=== PATIENT | female | born 1995 | race Caucasian/White ===

== ENCOUNTER 2022-07-31 15:08 | Observation (INO) ==
[2022-07-31] MEDS ORDERED: NORCO 5/325 MG TAB PO PRN (17:58)
[2022-07-31] MEDS: DIFLUCAN 200 MG IV PREMIX* 200 MG/100 ML BAG IV SCH (18:05)
[2022-07-31] MEDS: NS 1,000 ML IV 1,000 ML IV SCH (18:05)
[2022-07-31 18:16] LABS: BASOPHILS # (AUTO) 0.1 X10^3/uL (0.0-0.1); BASOPHILS % (AUTO) 0.7 % (0.2-1.0); EOSINOPHILS % (AUTO) 0.3 % (0.9-2.9); HEMATOCRIT 37.3 % (36.0-47.0); HEMOGLOBIN 12.6 g/dL (12.0-16.0); LYMPHOCYTES # (AUTO) 3.2 X10^3/uL (1.3-2.9); LYMPHOCYTES % (AUTO) 38.8 % (21.0-51.0); MEAN CORPUSCULAR HEMOGLOBIN 26.5 pg (27.0-34.0); MEAN CORPUSCULAR HGB CONC 33.7 g/dL (33.0-35.0); MEAN CORPUSCULAR VOLUME 78.8 fL (80.0-100.0); MEAN PLATELET VOLUME 8.1 fL (7.4-11.0); MONOCYTES # (AUTO) 0.4 x10^3/uL (0.3-0.8); MONOCYTES % (AUTO) 5.2 % (0.0-13.0); NEUTROPHILS # (AUTO) 4.6 x10^3/uL (2.2-4.8); RED BLOOD COUNT 4.74 X10^6/uL (3.5-5.4); RED CELL DISTRIBUTION WIDTH 13.3 % (11.6-16.5); WHITE BLOOD COUNT 8.3 X10^3/uL (3.6-10.0)
[2022-07-31 18:25] LABS: ALANINE AMINOTRANSFERASE 14 Units/L (12-78); ALBUMIN 3.3 g/dL (3.4-5.0); ALKALINE PHOSPHATASE 57 Units/L (46-116); ASPARTATE AMINO TRANSFERASE 16 Units/L (15-37); BLOOD UREA NITROGEN 15 mg/dL (7-18); CALCIUM 8.5 mg/dL (8.5-10.1); CARBON DIOXIDE 27.2 mmol/L (21-32); CHLORIDE 104 mmol/L (98-107); COR CA(FOR HYPOALB) 9.1 mg/dL (8.5-10.1); CREATININE 0.61 mg/dL (0.55-1.02); SODIUM 141 mmol/L (136-145); TOTAL PROTEIN 7.4 g/dL (6.4-8.2); eGFR NON BLACK RACES > 60 (>60)
[2022-07-31] MEDS: ZOSYN VIAL 4.5 GRAMS 4.5 G in NS 100 ML IV 100 ML IV SCH (19:36)
[2022-07-31] MEDS: ZOFRAN INJ 4 MG VIAL IVP PRN ×2 (19:57→23:47)
[2022-07-31] MEDS: PERCOCET TAB 5/325 MG PO PRN (19:57)
[2022-08-01] MEDS: PERCOCET TAB 5/325 MG PO PRN ×4 (01:51→21:04)
[2022-08-01] MEDS: ZOSYN VIAL 4.5 GRAMS 4.5 G in NS 100 ML IV 100 ML IV SCH ×5 (05:37→21:05)
[2022-08-01 06:04] LABS: BASOPHILS % (AUTO) 0.4 % (0.2-1.0); EOSINOPHILS % (AUTO) 0.8 % (0.9-2.9); HEMATOCRIT 37.5 % (36.0-47.0); HEMOGLOBIN 12.4 g/dL (12.0-16.0); LYMPHOCYTES # (AUTO) 3.2 X10^3/uL (1.3-2.9); LYMPHOCYTES % (AUTO) 54.9 % (21.0-51.0); MEAN CORPUSCULAR HEMOGLOBIN 26.5 pg (27.0-34.0); MEAN CORPUSCULAR HGB CONC 33.2 g/dL (33.0-35.0); MEAN CORPUSCULAR VOLUME 79.8 fL (80.0-100.0); MEAN PLATELET VOLUME 8.6 fL (7.4-11.0); MONOCYTES # (AUTO) 0.4 x10^3/uL (0.3-0.8); MONOCYTES % (AUTO) 6.5 % (0.0-13.0); NEUTROPHILS # (AUTO) 2.2 x10^3/uL (2.2-4.8); NEUTROPHILS % (AUTO) 37.4 % (42.0-75.0); RED CELL DISTRIBUTION WIDTH 13.5 % (11.6-16.5); WHITE BLOOD COUNT 5.8 X10^3/uL (3.6-10.0)
[2022-08-01 06:16] LABS: ALANINE AMINOTRANSFERASE 15 Units/L (12-78); ALBUMIN 2.8 g/dL (3.4-5.0); ALKALINE PHOSPHATASE 48 Units/L (46-116); ASPARTATE AMINO TRANSFERASE 24 Units/L (15-37); BLOOD UREA NITROGEN 13 mg/dL (7-18); CALCIUM 8.4 mg/dL (8.5-10.1); CARBON DIOXIDE 27.6 mmol/L (21-32); CHLORIDE 106 mmol/L (98-107); COR CA(FOR HYPOALB) 9.4 mg/dL (8.5-10.1); SODIUM 142 mmol/L (136-145); TOTAL PROTEIN 6.7 g/dL (6.4-8.2); eGFR NON BLACK RACES > 60 (>60)
[2022-08-01] MEDS ORDERED: POTASSIUM CHLORIDE LIQ 20 MEQ UDC PO PRN (06:24)
[2022-08-01] MEDS ORDERED: MAGNESIUM SULFATE 1 GRAM/100 mL PREMIX 1 G/100 ML BAG IV PRN (06:24)
[2022-08-01] MEDS ORDERED: MICRO K EXTEN CAP 10 MEQ PO PRN (06:24)
[2022-08-01] MEDS ORDERED: POTASSIUM CHL 60 MEQ/NS 0.45% 500 ML IV PRN (06:24)
[2022-08-01] MEDS ORDERED: KLOR-CON PO PRN (06:24)
[2022-08-01] MEDS ORDERED: POTASSIUM CHL 40 MEQ/NS 0.45% 500 ML IV PRN (06:24)
[2022-08-01] MEDS ORDERED: K-RIDER 10 MEQ/NS 100 ML 10 MEQ/100 ML BAG IV PRN (06:24)
--- NOTE | 2022-08-01 08:17 | DR.PROGNOT ---
HOSPITAL PROGRESS NOTE Progress Note for Day of: Progress Note Date: 08/01/22 Chief Complaint Chief Complaint: c/o painful ulcerations and open areas between skin folds RT lower abdominal wall , LT groin RT side . Pt is diabetic and morbid obese . Past Medical Family Social History Past Med/Fam/Surg Hx: No changes since H&P Allergies: Allergies No Known Drug Allergies [NKDA] Allergy (Unknown, Unverified 12/20/21 09:17) Onset Date: 12/20/2021 Review Of Systems ROS: No change since H&P Vital Signs Vital Signs: Temperature 98.1 F Pulse Rate [Radial] 85 Respiratory Rate 18 Blood Pressure [Left Arm] 121/71 Blood Pressure [Right Arm] 140/89 Blood Pressure 115/67 O2 Sat by Pulse Oximetry 97 Physical Exam Skin: Other (multiple open wounds between skin folds lower abdominal wall , groins ranging between 2 cm to 8 cm with cellulitis . no abscess formation or necrosis .) Speech Pattern: Clear and Appropriate Laboratory and Diagnostics Result Diagrams: 08/01/22 05:27 08/01/22 05:27 Labs: 07/31/22 17:40 Abdomen Wound Gram Stain - Final Laboratory WBC 5.8 X10^3/uL (3.6-10.0) 08/01/22 05:27 RBC 4.70 X10^6/uL (3.5-5.4) 08/01/22 05:27 Hgb 12.4 g/dL (12.0-16.0) 08/01/22 05:27 Hct 37.5 % (36.0-47.0) 08/01/22 05:27 MCV 79.8 fL (80.0-100.0) L 08/01/22 05:27 MCH 26.5 pg (27.0-34.0) L 08/01/22 05:27 MCHC 33.2 g/dL (33.0-35.0) 08/01/22 05:27 RDW 13.5 % (11.6-16.5) 08/01/22 05:27 Plt Count 216 X10^3/uL (150.0-450.0) 08/01/22 05:27 MPV 8.6 fL (7.4-11.0) 08/01/22 05:27 Neut % (Auto) 37.4 % (42.0-75.0) L 08/01/22 05:27 Lymph % (Auto) 54.9 % (21.0-51.0) H 08/01/22 05:27 [place] % (Auto) 6.5 % (0.0-13.0) 08/01/22 05:27 Eos % (Auto) 0.8 % (0.9-2.9) L 08/01/22 05:27 Baso % (Auto) 0.4 % (0.2-1.0) 08/01/22 05:27 Neut # (Auto) 2.2 x10^3/uL (2.2-4.8) 08/01/22 05:27 Lymph # (Auto) 3.2 X10^3/uL (1.3-2.9) H 08/01/22 05:27 [place] # (Auto) 0.4 x10^3/uL (0.3-0.8) 08/01/22 05:27 Eos # (Auto) 0.0 x10^3/uL (0.0-0.2) 08/01/22 05:27 Baso # (Auto) 0.0 X10^3/uL (0.0-0.1) 08/01/22 05:27 Absolute Nucleated RBC 0.0 /100WBC 08/01/22 05:27 Sodium 142 mmol/L (136-145) 08/01/22 05:27 Corrected Sodium TNP 08/01/22 05:27 Potassium 3.7 mmol/L (3.5-5.1) 08/01/22 05:27 Chloride 106 mmol/L (98-107) 08/01/22 05:27 Carbon Dioxide 27.6 mmol/L (21-32) 08/01/22 05:27 BUN 13 mg/dL (7-18) 08/01/22 05:27 Creatinine 0.60 mg/dL (0.55-1.02) 08/01/22 05:27 Est GFR (MDRD) Af Amer > 60 (>60) 08/01/22 05:27 Est GFR (MDRD) Non-Af > 60 (>60) 08/01/22 05:27 Glucose 76 mg/dL (65-99) 08/01/22 05:27 POC Glucose (mg/dL) 80 mg/dL (65-99) 08/01/22 06:29 Calcium 8.4 mg/dL (8.5-10.1) L 08/01/22 05:27 Corrected Calcium 9.4 mg/dL (8.5-10.1) 08/01/22 05:27 Magnesium 2.0 mg/dL (2.0-2.9) 08/01/22 05:27 Total Bilirubin 0.30 mg/dL (0.2-1.0) 08/01/22 05:27 AST 24 Units/L (15-37) 08/01/22 05:27 ALT 15 Units/L (12-78) 08/01/22 05:27 Alkaline Phosphatase 48 Units/L (46-116) 08/01/22 05:27 Total Protein 6.7 g/dL (6.4-8.2) 08/01/22 05:27 Albumin 2.8 g/dL (3.4-5.0) L 08/01/22 05:27 Globulin 3.9 g/dL (2.5-4.5) 08/01/22 05:27 Albumin/Globulin Ratio 0.7 Ratio (1.1-2.1) L 08/01/22 05:27 Assessment and Plan 1: extensive hidradenitis lower abdominal wall , groins ..chronic and acute with cellulitis and open ulcerations 2: type 2 DM 3: morbid obesity . on IV ABT pending final C&S local care with iodoform packing . no need for surgery now .
[2022-08-01] MEDS: DIFLUCAN 200 MG IV PREMIX* 200 MG/100 ML BAG IV SCH (08:21)
[2022-08-01] MEDS: K-DUR TAB 20 MEQ PO PRN (08:22)
[2022-08-01] MEDS: ZOFRAN INJ 4 MG VIAL IVP PRN (08:25)
[2022-08-01] MEDS: NS 1,000 ML IV 1,000 ML IV SCH ×3 (08:36→22:03)
[2022-08-01] MEDS: PHENERGAN TAB 25 MG PO PRN (11:20)
[2022-08-01] MEDS ORDERED: ZOLOFT ONE (20:21)
[2022-08-01] MEDS: ZOLOFT PO SCH (21:04)
[2022-08-01] MEDS: GLUCOPHAGE PO SCH (21:05)
[2022-08-02] MEDS: PERCOCET TAB 5/325 MG PO PRN ×4 (05:03→20:42)
[2022-08-02] MEDS: ZOSYN VIAL 4.5 GRAMS 4.5 G in NS 100 ML IV 100 ML IV SCH ×3 (05:04→21:02)
[2022-08-02 05:57] LABS: BASOPHILS % (AUTO) 0.4 % (0.2-1.0); EOSINOPHILS % (AUTO) 0.8 % (0.9-2.9); HEMATOCRIT 37.1 % (36.0-47.0); HEMOGLOBIN 12.4 g/dL (12.0-16.0); LYMPHOCYTES # (AUTO) 2.6 X10^3/uL (1.3-2.9); LYMPHOCYTES % (AUTO) 44.1 % (21.0-51.0); MEAN CORPUSCULAR HEMOGLOBIN 26.4 pg (27.0-34.0); MEAN CORPUSCULAR HGB CONC 33.4 g/dL (33.0-35.0); MEAN CORPUSCULAR VOLUME 79.1 fL (80.0-100.0); MEAN PLATELET VOLUME 8.3 fL (7.4-11.0); MONOCYTES # (AUTO) 0.3 x10^3/uL (0.3-0.8); MONOCYTES % (AUTO) 5.8 % (0.0-13.0); NEUTROPHILS # (AUTO) 2.9 x10^3/uL (2.2-4.8); NEUTROPHILS % (AUTO) 48.9 % (42.0-75.0); RED BLOOD COUNT 4.69 X10^6/uL (3.5-5.4); RED CELL DISTRIBUTION WIDTH 13.4 % (11.6-16.5); WHITE BLOOD COUNT 5.9 X10^3/uL (3.6-10.0)
[2022-08-02] MEDS: GLUCOPHAGE PO SCH ×3 (06:08→16:15)
[2022-08-02 06:13] LABS: ALANINE AMINOTRANSFERASE 15 Units/L (12-78); ALBUMIN 2.8 g/dL (3.4-5.0); ALKALINE PHOSPHATASE 47 Units/L (46-116); ASPARTATE AMINO TRANSFERASE 15 Units/L (15-37); BLOOD UREA NITROGEN 8 mg/dL (7-18); CALCIUM 8.2 mg/dL (8.5-10.1); CARBON DIOXIDE 27.2 mmol/L (21-32); CHLORIDE 105 mmol/L (98-107); COR CA(FOR HYPOALB) 9.2 mg/dL (8.5-10.1); CREATININE 0.67 mg/dL (0.55-1.02); SODIUM 139 mmol/L (136-145); TOTAL PROTEIN 6.6 g/dL (6.4-8.2); eGFR NON BLACK RACES > 60 (>60)
--- NOTE | 2022-08-02 08:04 | DR.H&P ---
H&P - History & Physical for Day of: H&P Date: 07/31/22 - Chief Complaint Chief Complaint: INFECTED SORES TO STOMACH - History of Present Illness History of Present Illness: PT IS 26F DIRECT ADMIT PER DR WALLACE WITH LOWER ABDOMINAL WALL CELLULITIS AND OPEN WOUNDS DUE TO HYPERHIDROSIS CAUSING HIDRAENDITIS. PT HAS PMH OF DM AND MORBID OBESITY, ELDER AND MDD. - Past Medical History Past Medical History: Hypertension, Diabetes, GERD Additional Medical History: morbid obesity - Past Surgical History Surgical History: Tonsillectomy, Weight Loss Surgery, Other - Family History Family Medical History: Diabetes Mellitus - Social History Does patient currently use any type of tobacco product: No Have you used tobacco products in the last 12 months: No Type of Tobacco Use: None Does any household member use tobacco: No Alcohol Use: None Drug Use: None - Medications Home Medications: No Known Drug Allergies [NKDA] Allergy (Unknown, Unverified 12/20/21 09:17) CONTINUE taking the following medications bupropion HCl 100 mg tablet,12 hr sustained-release 1 tab PO QAM 07/31/22 [History] cariprazine 1.5 mg capsule (Vraylar) 1 cap PO QDAY 07/31/22 [History] clindamycin phosphate 1 % topical swab 1 applic topical BID 07/31/22 [History] ergocalciferol (vitamin D2) 1,250 mcg (50,000 unit) capsule 1 cap PO QWEEK 07/31/22 [History] ezetimibe 10 mg-simvastatin 10 mg tablet 10 tab PO DAILY 07/31/22 [History] famotidine 20 mg tablet 1 tab PO QDAY 07/31/22 [History] gabapentin 300 mg capsule 1 cap PO TID 07/31/22 [History] metformin 500 mg tablet 1 tab PO TID 07/31/22 [History] minocycline 100 mg capsule 1 cap PO BID 07/31/22 [History] omeprazole 40 mg capsule,delayed release 1 cap PO QDAY 07/31/22 [History] promethazine 25 mg tablet 1 tab PO Q6H PRN 07/31/22 [History] sertraline 100 mg tablet 1 tab PO BID 07/31/22 [History] tirzepatide 12.5 mg/0.5 mL subcutaneous pen injector (Dax) 12.5 ea subcut WEEKLY 07/31/22 [History] trazodone 100 mg tablet 1 tab PO QPM 07/31/22 [History] vilazodone 10 mg tablet 20 tab PO DAILY 07/31/22 [History] - Review of Systems Constitutional: Weakness Eyes: No Symptoms Reported ENT: No Symptoms Reported Respiratory: No Symptoms Reported Cardiovascular: No Symptoms Reported Gastrointestinal: No Symptoms Reported Genitourinary: No Symptoms Reported Musculoskeletal: No Symptoms Reported Skin: Rash (multiple open wounds between skin folds lower abdominal wall , groins ranging between 2 cm to 8 cm with cellulitis . no abscess formation or necrosis ), Wound Neurological: No Symptoms Reported - Physical Exam Vital Signs: Temperature 98 F Pulse Rate [Radial] 80 Respiratory Rate 19 Blood Pressure [Left Arm] 124/76 Blood Pressure [Right Arm] 140/89 Blood Pressure 115/67 O2 Sat by Pulse Oximetry 99 Oriented: Normal Eyes: Normal Ear: Normal Nose: Normal Throat: Normal Respiratory: RLL Diminished, LLL Diminished Cardiovascular: Normal : Normal Auscultation: Bowel Sounds: Normal Palpation: Normal Tenderness: Diffuse, LUQ, LLQ Skin: Decreased [place], Red, Tender, Wound (multiple open wounds between skin folds lower abdominal wall , groins ranging between 2 cm to 8 cm with cellulitis . no abscess formation or necrosis ) Musculoskeletal: Normal Psychiatric: Anxiety Affect: Anxious Speech Pattern: Clear, Appropriate - Assessment/Plan (1) Hidradenitis Status: Acute (2) Diabetes type 2, uncontrolled Qualifiers: Glycemic state: with hyperglycemia Qualified Code(s): E11.65 - Type 2 diabetes mellitus with hyperglycemia Status: Acute (3) Gastroesophageal reflux disease Status: None (4) Cellulitis Status: Acute Plan: ADMIT, WOUND CULTURES ON ADMISSION, SURGICAL CONSULT. IV ATBX, WOUND CARE. VERIFY AND RESUME HOME MEDICATIONS. BP AND BS CONTROL (5) Hypertension Status: None - Allergies Allergies/Adverse Reactions: Allergies Allergy/AdvReac Type Severity Reaction Status Date / Time No Known Drug Allergies Allergy Unknown Unverified 12/20/21 09:17 [NKDA]
[2022-08-02] MEDS ORDERED: ZOLOFT ONE ×2 (09:00→20:19)
[2022-08-02] MEDS ORDERED: PEPCID TAB 20 MG ONE (09:00)
[2022-08-02] MEDS ORDERED: NYSTATIN POWDER ONE (09:00)
[2022-08-02] MEDS ORDERED: BUPROPION HCL 100 MG PO SCH (09:00)
[2022-08-02] MEDS: PATIENT'S HOME MEDICATION (Cariprazine [Vraylar] 1.5 mg capsule) PO SCH (09:05)
[2022-08-02] MEDS: PEPCID TAB 20 MG PO SCH (09:06)
[2022-08-02] MEDS: K-DUR TAB 20 MEQ PO PRN (09:06)
[2022-08-02] MEDS: NYSTATIN POWDER TOP SCH ×2 (09:07→20:38)
[2022-08-02] MEDS: DIFLUCAN 200 MG IV PREMIX* 200 MG/100 ML BAG IV SCH (09:07)
[2022-08-02] MEDS: ZOLOFT PO SCH ×2 (09:07→20:38)
--- NOTE | 2022-08-02 12:39 | DR.PROGNOT ---
HOSPITAL PROGRESS NOTE Progress Note for Day of: Progress Note Date: 08/02/22 Chief Complaint Chief Complaint: slow improvement . c/o painful ulcerations and open areas between skin folds RT lower abdominal wall , LT groin RT side . Pt is diabetic and morbid obese . Past Medical Family Social History Allergies: Allergies No Known Drug Allergies [NKDA] Allergy (Unknown, Unverified 12/20/21 09:17) Onset Date: 12/20/2021 Review Of Systems ROS: No change since H&P Vital Signs Vital Signs: Temperature 97.8 F Pulse Rate [Radial] 93 Respiratory Rate 18 Blood Pressure [Left Arm] 121/79 Blood Pressure [Right Arm] 140/89 Blood Pressure 115/67 O2 Sat by Pulse Oximetry 97 Physical Exam Oriented: Normal Eyes: Normal Ear: Normal Nose: Normal Throat: Normal Cardiovascular: Normal : Normal GI:Auscultation: Normal GI:Palpation: Normal GI: Tenderness: Diffuse, LUQ and LLQ Skin: Decreased [place], Red, Tender and Wound (multiple open wounds between skin folds lower abdominal wall , groins ranging between 2 cm to 8 cm with cellulitis . no abscess formation or necrosis ) Musculoskeletal: Normal Psychiatric: Anxiety Affect: Anxious Speech Pattern: Clear and Appropriate Laboratory and Diagnostics Result Diagrams: 08/02/22 05:40 08/02/22 05:40 Labs: 07/31/22 17:40 Abdomen Wound Gram Stain - Final 07/31/22 17:40 Abdomen Wound Culture - Preliminary Laboratory WBC 5.9 X10^3/uL (3.6-10.0) 08/02/22 05:40 RBC 4.69 X10^6/uL (3.5-5.4) 08/02/22 05:40 Hgb 12.4 g/dL (12.0-16.0) 08/02/22 05:40 Hct 37.1 % (36.0-47.0) 08/02/22 05:40 MCV 79.1 fL (80.0-100.0) L 08/02/22 05:40 MCH 26.4 pg (27.0-34.0) L 08/02/22 05:40 MCHC 33.4 g/dL (33.0-35.0) 08/02/22 05:40 RDW 13.4 % (11.6-16.5) 08/02/22 05:40 Plt Count 216 X10^3/uL (150.0-450.0) 08/02/22 05:40 MPV 8.3 fL (7.4-11.0) 08/02/22 05:40 Neut % (Auto) 48.9 % (42.0-75.0) 08/02/22 05:40 Lymph % (Auto) 44.1 % (21.0-51.0) 08/02/22 05:40 [place] % (Auto) 5.8 % (0.0-13.0) 08/02/22 05:40 Eos % (Auto) 0.8 % (0.9-2.9) L 08/02/22 05:40 Baso % (Auto) 0.4 % (0.2-1.0) 08/02/22 05:40 Neut # (Auto) 2.9 x10^3/uL (2.2-4.8) 08/02/22 05:40 Lymph # (Auto) 2.6 X10^3/uL (1.3-2.9) 08/02/22 05:40 [place] # (Auto) 0.3 x10^3/uL (0.3-0.8) 08/02/22 05:40 Eos # (Auto) 0.0 x10^3/uL (0.0-0.2) 08/02/22 05:40 Baso # (Auto) 0.0 X10^3/uL (0.0-0.1) 08/02/22 05:40 Absolute Nucleated RBC 0.0 /100WBC 08/02/22 05:40 Sodium 139 mmol/L (136-145) 08/02/22 05:40 Corrected Sodium TNP 08/02/22 05:40 Potassium 3.8 mmol/L (3.5-5.1) 08/02/22 05:40 Chloride 105 mmol/L (98-107) 08/02/22 05:40 Carbon Dioxide 27.2 mmol/L (21-32) 08/02/22 05:40 BUN 8 mg/dL (7-18) 08/02/22 05:40 Creatinine 0.67 mg/dL (0.55-1.02) 08/02/22 05:40 Est GFR (MDRD) Af Amer > 60 (>60) 08/02/22 05:40 Est GFR (MDRD) Non-Af > 60 (>60) 08/02/22 05:40 Glucose 82 mg/dL (65-99) 08/02/22 05:40 POC Glucose (mg/dL) 96 mg/dL (65-99) 08/02/22 11:00 Calcium 8.2 mg/dL (8.5-10.1) L 08/02/22 05:40 Corrected Calcium 9.2 mg/dL (8.5-10.1) 08/02/22 05:40 Magnesium 2.0 mg/dL (2.0-2.9) 08/01/22 05:27 Total Bilirubin 0.20 mg/dL (0.2-1.0) 08/02/22 05:40 AST 15 Units/L (15-37) 08/02/22 05:40 ALT 15 Units/L (12-78) 08/02/22 05:40 Alkaline Phosphatase 47 Units/L (46-116) 08/02/22 05:40 Total Protein 6.6 g/dL (6.4-8.2) 08/02/22 05:40 Albumin 2.8 g/dL (3.4-5.0) L 08/02/22 05:40 Globulin 3.8 g/dL (2.5-4.5) 08/02/22 05:40 Albumin/Globulin Ratio 0.7 Ratio (1.1-2.1) L 08/02/22 05:40 Assessment and Plan 1: extensive hidradenitis lower abdominal wall , groins ..chronic and acute with cellulitis and open ulcerations . needs antibiotics for long period . 6 weeks at least . will follow in the office . 2: type 2 DM 3: morbid obesity . on IV ABT pending final C&S local care with iodoform packing . no need for surgery now . Problem Patient Problems: Patient Problems (Updated 08/02/22 @ 08:04 by RONEN MURPHY) Diabetes type 2, uncontrolled (Acute) E11.65 Cellulitis (Acute) L03.90 Hidradenitis (Acute) L73.2
[2022-08-02] MEDS: NS 1,000 ML IV 1,000 ML IV SCH (12:55)
[2022-08-03] MEDS ORDERED: GLUCOPHAGE ONE (04:29)
[2022-08-03] MEDS: PERCOCET TAB 5/325 MG PO PRN ×4 (04:46→19:30)
[2022-08-03] MEDS: NS 1,000 ML IV 1,000 ML IV SCH ×5 (05:46→23:30)
[2022-08-03] MEDS: ZOSYN VIAL 4.5 GRAMS 4.5 G in NS 100 ML IV 100 ML IV SCH ×3 (05:47→21:01)
[2022-08-03] MEDS: GLUCOPHAGE PO SCH ×3 (06:04→16:19)
[2022-08-03 06:05] LABS: BASOPHILS % (AUTO) 0.3 % (0.2-1.0); EOSINOPHILS # (AUTO) 0.1 x10^3/uL (0.0-0.2); HEMATOCRIT 36.1 % (36.0-47.0); HEMOGLOBIN 12.2 g/dL (12.0-16.0); LYMPHOCYTES # (AUTO) 3.1 X10^3/uL (1.3-2.9); LYMPHOCYTES % (AUTO) 50.3 % (21.0-51.0); MEAN CORPUSCULAR HEMOGLOBIN 26.8 pg (27.0-34.0); MEAN CORPUSCULAR HGB CONC 33.8 g/dL (33.0-35.0); MEAN CORPUSCULAR VOLUME 79.4 fL (80.0-100.0); MEAN PLATELET VOLUME 8.4 fL (7.4-11.0); MONOCYTES # (AUTO) 0.4 x10^3/uL (0.3-0.8); MONOCYTES % (AUTO) 6.1 % (0.0-13.0); NEUTROPHILS # (AUTO) 2.6 x10^3/uL (2.2-4.8); NEUTROPHILS % (AUTO) 42.3 % (42.0-75.0); RED BLOOD COUNT 4.55 X10^6/uL (3.5-5.4); RED CELL DISTRIBUTION WIDTH 13.6 % (11.6-16.5); WHITE BLOOD COUNT 6.2 X10^3/uL (3.6-10.0)
[2022-08-03 06:11] LABS: ALANINE AMINOTRANSFERASE 15 Units/L (12-78); ALBUMIN 2.8 g/dL (3.4-5.0); ALKALINE PHOSPHATASE 46 Units/L (46-116); ASPARTATE AMINO TRANSFERASE 18 Units/L (15-37); BLOOD UREA NITROGEN 6 mg/dL (7-18); CALCIUM 8.2 mg/dL (8.5-10.1); CARBON DIOXIDE 30.9 mmol/L (21-32); CHLORIDE 104 mmol/L (98-107); COR CA(FOR HYPOALB) 9.2 mg/dL (8.5-10.1); CREATININE 0.67 mg/dL (0.55-1.02); MAGNESIUM 2.1 mg/dL (2.0-2.9); SODIUM 140 mmol/L (136-145); TOTAL PROTEIN 6.6 g/dL (6.4-8.2); eGFR NON BLACK RACES > 60 (>60)
[2022-08-03] MEDS ORDERED: PEPCID TAB 20 MG ONE (08:18)
[2022-08-03] MEDS: PEPCID TAB 20 MG PO SCH (08:22)
[2022-08-03] MEDS: NYSTATIN POWDER TOP SCH ×2 (08:22→20:08)
[2022-08-03] MEDS: DIFLUCAN 200 MG IV PREMIX* 200 MG/100 ML BAG IV SCH (08:22)
[2022-08-03] MEDS: K-DUR TAB 20 MEQ PO PRN (08:22)
[2022-08-03] MEDS: ZOLOFT PO SCH ×2 (08:23→20:05)
[2022-08-03] MEDS: PATIENT'S HOME MEDICATION (Cariprazine [Vraylar] 1.5 mg capsule) PO SCH (08:23)
[2022-08-03] MEDS ORDERED: NYSTATIN POWDER ONE (09:00)
--- NOTE | 2022-08-03 11:05 | PCM.PROG ---
Progress Note Progress Note for Day of Date of Exam: 08/03/22 Subjective Subjective: This is a pleasant 26-year-old white female who is currently being treated for right inguinal cellulitis and hydradenitis with infection. No current organism has been identified at this time from wound cultures. She is receiving IV Zosyn, IV fluconazole and nystatin for this. She has multiple right inguinal wounds that are packed with iodoform and they appear clean at the time and appear to be healing nicely. She reports her pain is controlled and has no new complaints this morning. General surgeon, Dr. Barton is also seeing her for this problem. Her primary care physician plans on referring her to the hyperbaric oxygen treatment center in [place], [place] after discharge at the first of the week for continued treatment of these chronic problems. She is also a known diabetic and her blood sugars are adequately treated with metformin currently. She has a normal white blood cell count this morning is 6200 and she has been afebrile overnight. She had no acute problems through the night as well. Past Medical Family Social History Past Med/Fam/Surg Hx: No changes since H&P Allergies: Allergies No Known Drug Allergies [NKDA] Allergy (Unknown, Unverified 08/02/22 21:24) Review of Systems ROS: No change since H&P Vital Signs and I&O's Vital Signs: Temperature 97.6 F Pulse Rate [Radial] 80 Respiratory Rate 18 Blood Pressure [Left Arm] 118/81 Blood Pressure [Right Arm] 140/89 Blood Pressure 115/67 O2 Sat by Pulse Oximetry 100 Intake and Output: Intake & Output 07/31/22 08/01/22 08/02/22 08/03/22 11:59 11:59 11:59 11:59 Intake Total 19990 / 3630 Balance 1999 / 363 Physical Exam Oriented: Normal Eyes: Normal Ear: Normal Nose: Normal Throat: Normal Respiratory: Normal Cardiovascular: Normal : Normal Auscultation: Bowel Sounds: Normal Tenderness: Diffuse, LUQ and LLQ Skin: Tender and Wound (multiple open wounds between skin folds lower abdominal wall , groins ranging between 2 cm to 8 cm with cellulitis . no abscess formation or necrosis ) Musculoskeletal: Normal Psychiatric: Anxiety Affect: Anxious Speech Pattern: Clear and Appropriate Laboratory and Diagnostics Result Diagrams: 08/03/22 05:17 08/03/22 05:17 Labs: 07/31/22 17:40 Abdomen Wound Gram Stain - Final 07/31/22 17:40 Abdomen Wound Culture - Final Laboratory WBC 6.2 X10^3/uL (3.6-10.0) 08/03/22 05:17 RBC 4.55 X10^6/uL (3.5-5.4) 08/03/22 05:17 Hgb 12.2 g/dL (12.0-16.0) 08/03/22 05:17 Hct 36.1 % (36.0-47.0) 08/03/22 05:17 MCV 79.4 fL (80.0-100.0) L 08/03/22 05:17 MCH 26.8 pg (27.0-34.0) L 08/03/22 05:17 MCHC 33.8 g/dL (33.0-35.0) 08/03/22 05:17 RDW 13.6 % (11.6-16.5) 08/03/22 05:17 Plt Count 221 X10^3/uL (150.0-450.0) 08/03/22 05:17 MPV 8.4 fL (7.4-11.0) 08/03/22 05:17 Neut % (Auto) 42.3 % (42.0-75.0) 08/03/22 05:17 Lymph % (Auto) 50.3 % (21.0-51.0) 08/03/22 05:17 [place] % (Auto) 6.1 % (0.0-13.0) 08/03/22 05:17 Eos % (Auto) 1.0 % (0.9-2.9) 08/03/22 05:17 Baso % (Auto) 0.3 % (0.2-1.0) 08/03/22 05:17 Neut # (Auto) 2.6 x10^3/uL (2.2-4.8) 08/03/22 05:17 Lymph # (Auto) 3.1 X10^3/uL (1.3-2.9) H 08/03/22 05:17 [place] # (Auto) 0.4 x10^3/uL (0.3-0.8) 08/03/22 05:17 Eos # (Auto) 0.1 x10^3/uL (0.0-0.2) 08/03/22 05:17 Baso # (Auto) 0.0 X10^3/uL (0.0-0.1) 08/03/22 05:17 Absolute Nucleated RBC 0.0 /100WBC 08/03/22 05:17 Sodium 140 mmol/L (136-145) 08/03/22 05:17 Corrected Sodium TNP 08/03/22 05:17 Potassium 3.8 mmol/L (3.5-5.1) 08/03/22 05:17 Chloride 104 mmol/L (98-107) 08/03/22 05:17 Carbon Dioxide 30.9 mmol/L (21-32) 08/03/22 05:17 BUN 6 mg/dL (7-18) L 08/03/22 05:17 Creatinine 0.67 mg/dL (0.55-1.02) 08/03/22 05:17 Est GFR (MDRD) Af Amer > 60 (>60) 08/03/22 05:17 Est GFR (MDRD) Non-Af > 60 (>60) 08/03/22 05:17 Glucose 80 mg/dL (65-99) 08/03/22 05:17 POC Glucose (mg/dL) 87 mg/dL (65-99) 08/03/22 05:42 Calcium 8.2 mg/dL (8.5-10.1) L 08/03/22 05:17 Corrected Calcium 9.2 mg/dL (8.5-10.1) 08/03/22 05:17 Magnesium 2.1 mg/dL (2.0-2.9) 08/03/22 05:17 Total Bilirubin 0.20 mg/dL (0.2-1.0) 08/03/22 05:17 AST 18 Units/L (15-37) 08/03/22 05:17 ALT 15 Units/L (12-78) 08/03/22 05:17 Alkaline Phosphatase 46 Units/L (46-116) 08/03/22 05:17 Total Protein 6.6 g/dL (6.4-8.2) 08/03/22 05:17 Albumin 2.8 g/dL (3.4-5.0) L 08/03/22 05:17 Globulin 3.8 g/dL (2.5-4.5) 08/03/22 05:17 Albumin/Globulin Ratio 0.7 Ratio (1.1-2.1) L 08/03/22 05:17 Plan (1) Hidradenitis: Status: Acute Plan: Continue IV Zosyn along with IV fluconazole and nystatin. (2) Diabetes type 2, uncontrolled: Status: Acute Qualifiers: Glycemic state: with hyperglycemia Qualified Code(s): E11.65 - Type 2 diabetes mellitus with hyperglycemia (3) Gastroesophageal reflux disease: Status: None (4) Cellulitis: Status: Acute Plan: ADMIT, WOUND CULTURES ON ADMISSION, SURGICAL CONSULT IV ATBX, WOUND CARE VERIFY AND RESUME HOME MEDICATIONS BP AND BS CONTROL (5) Hypertension: Status: None Plan: Blood pressure stable this time.
[2022-08-03] MEDS: ZOFRAN INJ 4 MG VIAL IVP PRN ×2 (11:31→18:08)
[2022-08-03] MEDS ORDERED: COLACE CAP 100 MG PO ONE (19:57)
[2022-08-03] MEDS: COLACE CAP 100 MG PO PRN (20:07)
[2022-08-03] MEDS: PHENERGAN TAB 25 MG PO PRN (20:07)
[2022-08-04] MEDS: ZOFRAN INJ 4 MG VIAL IVP PRN ×2 (05:24→20:46)
[2022-08-04] MEDS: ZOSYN VIAL 4.5 GRAMS 4.5 G in NS 100 ML IV 100 ML IV SCH ×3 (05:24→21:27)
[2022-08-04] MEDS: PERCOCET TAB 5/325 MG PO PRN ×4 (05:25→20:47)
[2022-08-04 05:51] LABS: BASOPHILS % (AUTO) 0.3 % (0.2-1.0); EOSINOPHILS # (AUTO) 0.1 x10^3/uL (0.0-0.2); EOSINOPHILS % (AUTO) 1.7 % (0.9-2.9); HEMOGLOBIN 12.4 g/dL (12.0-16.0); LYMPHOCYTES # (AUTO) 2.7 X10^3/uL (1.3-2.9); LYMPHOCYTES % (AUTO) 51.9 % (21.0-51.0); MEAN CORPUSCULAR HEMOGLOBIN 26.6 pg (27.0-34.0); MEAN CORPUSCULAR HGB CONC 33.6 g/dL (33.0-35.0); MEAN CORPUSCULAR VOLUME 79.2 fL (80.0-100.0); MEAN PLATELET VOLUME 8.4 fL (7.4-11.0); MONOCYTES # (AUTO) 0.3 x10^3/uL (0.3-0.8); MONOCYTES % (AUTO) 6.8 % (0.0-13.0); NEUTROPHILS % (AUTO) 39.3 % (42.0-75.0); RED BLOOD COUNT 4.68 X10^6/uL (3.5-5.4); WHITE BLOOD COUNT 5.1 X10^3/uL (3.6-10.0)
[2022-08-04 06:00] LABS: ALANINE AMINOTRANSFERASE 17 Units/L (12-78); ALKALINE PHOSPHATASE 47 Units/L (46-116); ASPARTATE AMINO TRANSFERASE 20 Units/L (15-37); BLOOD UREA NITROGEN 7 mg/dL (7-18); CALCIUM 8.2 mg/dL (8.5-10.1); CARBON DIOXIDE 29.5 mmol/L (21-32); CHLORIDE 105 mmol/L (98-107); SODIUM 139 mmol/L (136-145); TOTAL PROTEIN 6.7 g/dL (6.4-8.2); eGFR NON BLACK RACES > 60 (>60)
[2022-08-04] MEDS: GLUCOPHAGE PO SCH ×3 (06:20→17:10)
[2022-08-04] MEDS ORDERED: NYSTATIN POWDER ONE (08:07)
[2022-08-04] MEDS ORDERED: COLACE CAP 100 MG PO ONE ×2 (08:07→19:08)
[2022-08-04] MEDS ORDERED: ZOLOFT ONE (08:07)
[2022-08-04] MEDS ORDERED: NS 50 ML IV 0 ML IV ONE (08:08)
[2022-08-04] MEDS ORDERED: PEPCID 20 MG VIAL ONE (08:08)
[2022-08-04] MEDS: COLACE CAP 100 MG PO PRN ×4 (08:48→20:46)
[2022-08-04] MEDS: ZOLOFT PO SCH ×3 (08:48→20:46)
[2022-08-04] MEDS: DIFLUCAN 200 MG IV PREMIX* 200 MG/100 ML BAG IV SCH (08:51)
[2022-08-04] MEDS: NYSTATIN POWDER TOP SCH ×2 (08:54→20:45)
[2022-08-04] MEDS ORDERED: PEPCID TAB 20 MG ONE (09:31)
[2022-08-04] MEDS: PEPCID TAB 20 MG PO SCH (09:37)
[2022-08-04] MEDS: PATIENT'S HOME MEDICATION (Cariprazine [Vraylar] 1.5 mg capsule) PO SCH (09:38)
--- NOTE | 2022-08-04 12:23 | PCM.PROG ---
Progress Note Progress Note for Day of Date of Exam: 08/04/22 Subjective Subjective: This is a pleasant 26-year-old white female who is currently being treated for right inguinal cellulitis and hydradenitis with infection. No current organism has been identified at this time from wound cultures. She is receiving IV Zosyn, IV fluconazole and nystatin for this. She has multiple right inguinal wounds that are packed with iodoform and they appear clean at the time and appear to be healing nicely. She reports her pain is controlled and has no new complaints this morning. General surgeon, Dr. Barton is also seeing her for this problem. Her primary care physician plans on referring her to the hyperbaric oxygen treatment center in [place], [place] after discharge at the first of the week for continued treatment of these chronic problems. She is also a known diabetic and her blood sugars are adequately treated with metformin currently. She has a normal white blood cell count this morning is 5100 and she has been afebrile overnight. She had no acute problems through the night as well. Continue current treatment at this time and no changes. Repeat routine labs tomorrow morning. Past Medical Family Social History Past Med/Fam/Surg Hx: No changes since H&P Allergies: Allergies adhesive tape Adverse Reaction (Verified 08/03/22 18:13) Review of Systems ROS: No change since H&P Vital Signs and I&O's Vital Signs: Temperature 97.8 F Pulse Rate [Radial] 89 Respiratory Rate 20 Blood Pressure [Left Arm] 133/62 Blood Pressure [Right Arm] 140/89 Blood Pressure 115/67 O2 Sat by Pulse Oximetry 96 Intake and Output: Intake & Output 08/02/22 08/03/22 08/04/22 08/05/22 11:59 11:59 11:59 11:59 Intake Total 1959 3630 / 3630 2490 / 2490 Balance 1959 363 / 363 2490 / 2490 Physical Exam Oriented: Normal Eyes: Normal Ear: Normal Nose: Normal Throat: Normal Respiratory: Normal Cardiovascular: Normal : Normal Auscultation: Bowel Sounds: Normal Tenderness: Diffuse, LUQ and LLQ Skin: Tender and Wound (multiple open wounds between skin folds lower abdominal wall , groins ranging between 2 cm to 8 cm with cellulitis . no abscess formation or necrosis ) Musculoskeletal: Normal Psychiatric: Anxiety Affect: Anxious Speech Pattern: Clear and Appropriate Laboratory and Diagnostics Result Diagrams: 08/04/22 05:19 08/04/22 05:19 Labs: 08/03/22 14:05 Abdomen Wound Gram Stain - Final 08/03/22 14:05 Abdomen Wound Culture - Preliminary 07/31/22 17:40 Abdomen Wound Gram Stain - Final 07/31/22 17:40 Abdomen Wound Culture - Final Laboratory WBC 5.1 X10^3/uL (3.6-10.0) 08/04/22 05:19 RBC 4.68 X10^6/uL (3.5-5.4) 08/04/22 05:19 Hgb 12.4 g/dL (12.0-16.0) 08/04/22 05:19 Hct 37.0 % (36.0-47.0) 08/04/22 05:19 MCV 79.2 fL (80.0-100.0) L 08/04/22 05:19 MCH 26.6 pg (27.0-34.0) L 08/04/22 05:19 MCHC 33.6 g/dL (33.0-35.0) 08/04/22 05:19 RDW 14.0 % (11.6-16.5) 08/04/22 05:19 Plt Count 227 X10^3/uL (150.0-450.0) 08/04/22 05:19 MPV 8.4 fL (7.4-11.0) 08/04/22 05:19 Neut % (Auto) 39.3 % (42.0-75.0) L 08/04/22 05:19 Lymph % (Auto) 51.9 % (21.0-51.0) H 08/04/22 05:19 [place] % (Auto) 6.8 % (0.0-13.0) 08/04/22 05:19 Eos % (Auto) 1.7 % (0.9-2.9) 08/04/22 05:19 Baso % (Auto) 0.3 % (0.2-1.0) 08/04/22 05:19 Neut # (Auto) 2.0 x10^3/uL (2.2-4.8) L 08/04/22 05:19 Lymph # (Auto) 2.7 X10^3/uL (1.3-2.9) 08/04/22 05:19 [place] # (Auto) 0.3 x10^3/uL (0.3-0.8) 08/04/22 05:19 Eos # (Auto) 0.1 x10^3/uL (0.0-0.2) 08/04/22 05:19 Baso # (Auto) 0.0 X10^3/uL (0.0-0.1) 08/04/22 05:19 Absolute Nucleated RBC 0.0 /100WBC 08/04/22 05:19 Sodium 139 mmol/L (136-145) 08/04/22 05:19 Corrected Sodium TNP 08/04/22 05:19 Potassium 3.9 mmol/L (3.5-5.1) 08/04/22 05:19 Chloride 105 mmol/L (98-107) 08/04/22 05:19 Carbon Dioxide 29.5 mmol/L (21-32) 08/04/22 05:19 BUN 7 mg/dL (7-18) 08/04/22 05:19 Creatinine 0.70 mg/dL (0.55-1.02) 08/04/22 05:19 Est GFR (MDRD) Af Amer > 60 (>60) 08/04/22 05:19 Est GFR (MDRD) Non-Af > 60 (>60) 08/04/22 05:19 Glucose 78 mg/dL (65-99) 08/04/22 05:19 POC Glucose (mg/dL) 79 mg/dL (65-99) 08/04/22 11:08 Calcium 8.2 mg/dL (8.5-10.1) L 08/04/22 05:19 Corrected Calcium 9.0 mg/dL (8.5-10.1) 08/04/22 05:19 Magnesium 2.1 mg/dL (2.0-2.9) 08/03/22 05:17 Total Bilirubin 0.20 mg/dL (0.2-1.0) 08/04/22 05:19 AST 20 Units/L (15-37) 08/04/22 05:19 ALT 17 Units/L (12-78) 08/04/22 05:19 Alkaline Phosphatase 47 Units/L (46-116) 08/04/22 05:19 Total Protein 6.7 g/dL (6.4-8.2) 08/04/22 05:19 Albumin 3.0 g/dL (3.4-5.0) L 08/04/22 05:19 Globulin 3.7 g/dL (2.5-4.5) 08/04/22 05:19 Albumin/Globulin Ratio 0.8 Ratio (1.1-2.1) L 08/04/22 05:19 Plan (1) Hidradenitis: Status: Acute Plan: Continue IV Zosyn along with IV fluconazole and nystatin. (2) Diabetes type 2, uncontrolled: Status: Acute Qualifiers: Glycemic state: with hyperglycemia Qualified Code(s): E11.65 - Type 2 diabetes mellitus with hyperglycemia (3) Gastroesophageal reflux disease: Status: None (4) Cellulitis: Status: Acute Plan: ADMIT, WOUND CULTURES ON ADMISSION, SURGICAL CONSULT IV ATBX, WOUND CARE VERIFY AND RESUME HOME MEDICATIONS BP AND BS CONTROL (5) Hypertension: Status: None Plan: Blood pressure stable this time.
[2022-08-04] MEDS: NS 1,000 ML IV 1,000 ML IV SCH (14:49)
[2022-08-04] MEDS ORDERED: PERCOCET TAB 5/325 MG ONE (15:08)
[2022-08-05] MEDS: NS 1,000 ML IV 1,000 ML IV SCH (05:30)
[2022-08-05] MEDS: ZOSYN VIAL 4.5 GRAMS 4.5 G in NS 100 ML IV 100 ML IV SCH (05:31)
[2022-08-05] MEDS: PERCOCET TAB 5/325 MG PO PRN (05:31)
[2022-08-05 05:58] LABS: BASOPHILS % (AUTO) 0.6 % (0.2-1.0); EOSINOPHILS # (AUTO) 0.1 x10^3/uL (0.0-0.2); EOSINOPHILS % (AUTO) 1.8 % (0.9-2.9); HEMATOCRIT 37.2 % (36.0-47.0); HEMOGLOBIN 12.3 g/dL (12.0-16.0); LYMPHOCYTES # (AUTO) 2.9 X10^3/uL (1.3-2.9); LYMPHOCYTES % (AUTO) 51.2 % (21.0-51.0); MEAN CORPUSCULAR HEMOGLOBIN 26.6 pg (27.0-34.0); MEAN CORPUSCULAR HGB CONC 33.2 g/dL (33.0-35.0); MEAN PLATELET VOLUME 8.5 fL (7.4-11.0); MONOCYTES # (AUTO) 0.4 x10^3/uL (0.3-0.8); MONOCYTES % (AUTO) 6.8 % (0.0-13.0); NEUTROPHILS # (AUTO) 2.3 x10^3/uL (2.2-4.8); NEUTROPHILS % (AUTO) 39.6 % (42.0-75.0); RED BLOOD COUNT 4.64 X10^6/uL (3.5-5.4); RED CELL DISTRIBUTION WIDTH 13.9 % (11.6-16.5); WHITE BLOOD COUNT 5.7 X10^3/uL (3.6-10.0)
[2022-08-05] MEDS: GLUCOPHAGE PO SCH (06:25)
[2022-08-05 06:27] LABS: ALANINE AMINOTRANSFERASE 20 Units/L (12-78); ALKALINE PHOSPHATASE 49 Units/L (46-116); ASPARTATE AMINO TRANSFERASE 21 Units/L (15-37); BLOOD UREA NITROGEN 10 mg/dL (7-18); CALCIUM 8.3 mg/dL (8.5-10.1); CARBON DIOXIDE 28.4 mmol/L (21-32); CHLORIDE 104 mmol/L (98-107); COR CA(FOR HYPOALB) 9.1 mg/dL (8.5-10.1); CREATININE 0.68 mg/dL (0.55-1.02); SODIUM 140 mmol/L (136-145); eGFR NON BLACK RACES > 60 (>60)
[2022-08-05 08:01] VITALS: BP 129/62
[2022-08-05] MEDS ORDERED: PEPCID TAB 20 MG ONE (08:11)
[2022-08-05] MEDS: PEPCID TAB 20 MG PO SCH (08:19)
[2022-08-05] MEDS: DIFLUCAN 200 MG IV PREMIX* 200 MG/100 ML BAG IV SCH (08:19)
[2022-08-05] MEDS: PATIENT'S HOME MEDICATION (Cariprazine [Vraylar] 1.5 mg capsule) PO SCH (08:21)
[2022-08-05] MEDS: NYSTATIN POWDER TOP SCH (08:26)
[2022-08-05] MEDS: ZOLOFT PO SCH (08:27)
== END 2022-08-05 11:30 | disposition home health service (06) ==
LOC: MED/SURG
PROVIDERS: ADMIT Internal Medicine; ATTEND Internal Medicine
DX: R79.89 Other specified abnormal findings of blood chemistry; B95.7 Other staphylococcus as the cause of diseases classified elsewhere; L98.498 Non-pressure chronic ulcer of skin of other sites with other specified severity; L03.311 Cellulitis of abdominal wall; I10 Essential (primary) hypertension; K21.9 Gastro-esophageal reflux disease without esophagitis; L73.2 Hidradenitis suppurativa; L02.211 Cutaneous abscess of abdominal wall; F32.89 Other specified depressive episodes; E11.65 Type 2 diabetes mellitus with hyperglycemia; F41.8 Other specified anxiety disorders

== ENCOUNTER 2023-07-08 06:24 | Inpatient (IN) ==
[2023-07-08] MEDS ORDERED: NS 100 ML IV 100 ML ONE ×3 (06:31→15:09)
[2023-07-08] MEDS ORDERED: STADOL INJ IVP PRN (06:32)
[2023-07-08] MEDS ORDERED: PITOCIN IVP ONE (06:32)
[2023-07-08] MEDS ORDERED: LR 1,000 ML IV 1,000 ML IV ONE ×3 (06:32→16:23)
[2023-07-08] MEDS ORDERED: LR 1,000 ML IV 1,000 ML IV SCH (06:32)
[2023-07-08] MEDS ORDERED: REGLAN INJ 10 MG VIAL IVP PRN ×4 (06:32→20:16)
[2023-07-08] MEDS ORDERED: NS 1,000 ML IV 1,000 ML ONE (06:37)
[2023-07-08] MEDS: NS 1,000 ML IV 1,000 ML IV SCH (06:50)
[2023-07-08] MEDS: AMPICILLIN VIAL 2 GRAM 2 G in NS 100 ML IV + SPIKE MINIBAG* 100 ML IV SCH (07:10)
[2023-07-08] MEDS: AMPICILLIN VIAL 2 GRAM ONE (07:10)
[2023-07-08] MEDS: OXYTOCIN 20 UNIT/1,000 ML-NS 20 UNIT/1,000 ML PLAST..BAG IV PRN (07:13)
--- NOTE | 2023-07-08 07:22 | DR.OB ---
OB QUICK NOTE Assessment/Plan (1) Active labor at term: Assessment/Plan: L&D 07/08/23 at 7:00am S-No complaint. O-Afebrile,VSS MLQ=397 with good LTV, +accel, no decel. CTX=occasional, mild CVX=2cm/50%/-1/VTX AROM with clear fluid. IUPC and FSE placed. A-IUP at 38 0/7 weeks for induction Preexisting DM +GBS P-Begin pitocin induction IV ABX in labor for +GBS Anticipate
[2023-07-08] MEDS: D5 1/2 NS 1,000 ML 0 ML IV ONE (07:55)
[2023-07-08] MEDS ORDERED: NUBAIN INJ 200 MG VIAL MULTIDOSE ONE ×2 (08:50→11:38)
[2023-07-08] MEDS: NUBAIN INJ 20 MG AMP IVP PRN (08:52)
[2023-07-08] MEDS ORDERED: AMPICILLIN VIAL 1 GRAM ONE ×2 (10:53→15:09)
[2023-07-08] MEDS: AMPICILLIN VIAL 1 GRAM 1 G in NS 50 ML IV + SPIKE MINIBAG* 50 ML IV SCH (11:00)
[2023-07-08] MEDS ORDERED: NS IRRIGATION* 500 ML IR ONE (11:13)
--- NOTE | 2023-07-08 11:27 | DR.OB ---
OB QUICK NOTE Assessment/Plan (1) Active labor at term: Assessment/Plan: L&D 07/08/23 at 10:48am Pitocin=10mu/min. Ampicillin S-No complaint except CTX pain. O-Afebrile,VSS MLY=691 with good LTV, +accel, no decel. CTX=q 1 1/2 to 2 min., about 55-65mmHg CVX=3cm/60%/-1/VTX A-IUP at 38 0/7 weeks for induction Pre-existing DM +GBS P-Cont. pitocin induction / ABX in labor Anticipate
[2023-07-08] MEDS ORDERED: FENTANYL VIAL INJ 100 mcg ONE (12:48)
[2023-07-08] MEDS ORDERED: NAROPIN EPIDURAL 0.2% 100 ML ONE (12:49)
[2023-07-08] MEDS ORDERED: XYLOCAINE 1 % (PLAIN) ONE (13:30)
[2023-07-08] MEDS ORDERED: D5 1/2 NS 1,000 ML 1,000 ML IV ONE (13:48)
[2023-07-08] MEDS: NOZIN NASAL SANITIZER TP ONE (16:36)
[2023-07-08] MEDS ORDERED: NOZIN NASAL SANITIZER TP ONE (16:39)
[2023-07-08] MEDS ORDERED: LIDOCAINE 2%-EPI 1:200,000 ONE (16:41)
[2023-07-08] MEDS: ANCEF VIAL 1 GRAM IV ONE (16:41)
[2023-07-08] MEDS ORDERED: ZOFRAN INJ 4 MG VIAL ONE (16:48)
[2023-07-08] MEDS: ZOFRAN INJ 4 MG VIAL IVP PRN (16:50)
--- NOTE | 2023-07-08 17:29 | DR.OB ---
OB QUICK NOTE Assessment/Plan (1) Active labor at term: Assessment/Plan: L&D 07/08/23 at 4:30pm S-No complaint. O-Afebrile,VSS CPW=701 with good LTV, +accel, occ. late variable. CTX=q 2-4 min., about 55-75mmHg CVX=4cm/75%/-1 with caput ( no change in over 4 hours) A-IUP at 38 0/7 weeks with failure to dilate P-To C/S
[2023-07-08] MEDS: BICITRA 30 ML PO ONE (17:32)
[2023-07-08] MEDS: NS 100 ML IV 100 ML ONE (17:32)
[2023-07-08] MEDS: ANCEF VIAL 1 GRAM ONE (17:32)
[2023-07-08] MEDS: VERSED ONE ×2 (17:32→19:03)
[2023-07-08] MEDS: DILAUDID INJ ONE (17:32)
[2023-07-08] MEDS: PITOCIN ONE (18:18)
[2023-07-08] MEDS ORDERED: BARHEMSYS INJ IVP PRN (19:24)
[2023-07-08] MEDS ORDERED: BENADRYL INJ 50 MG VIAL IVP PRN ×2 (19:24→19:26)
[2023-07-08] MEDS ORDERED: ZOFRAN INJ 4 MG VIAL IVP PRN ×3 (19:24→20:16)
[2023-07-08] MEDS ORDERED: TORADOL 30 MG VIAL IVP PRN (19:26)
[2023-07-08] MEDS ORDERED: NARCAN INJ IVP PRN ×2 (19:26→20:16)
[2023-07-08] MEDS ORDERED: PERCOCET TAB 5/325 MG PO PRN ×2 (19:26→20:16)
[2023-07-08] MEDS ORDERED: ADACEL or BOOSTRIX TDaP VACCINE IM ONE (20:16)
[2023-07-08] MEDS ORDERED: D5 1/2 NS 1,000 ML 1,000 ML with PITOCIN 20 UNITS IV SCH (20:16)
[2023-07-08] MEDS ORDERED: MYLICON TAB 80 MG CHEW PO PRN (20:16)
[2023-07-08] MEDS: BENADRYL INJ 50 MG VIAL IVP PRN (22:30)
[2023-07-08] MEDS: TORADOL 30 MG VIAL IVP PRN (22:30)
[2023-07-09 05:15] LABS: HEMATOCRIT 34.4 % (36.0-47.0); HEMOGLOBIN 11.6 g/dL (12.0-16.0)
[2023-07-09 05:28] VITALS: O2SAT 99
[2023-07-09] MEDS: PRENATAL PLUS PO SCH (08:36)
[2023-07-09] MEDS: VSL#3 PROBIOTIC CAP 112.5 B PO SCH (08:36)
[2023-07-09] MEDS: PROzac PO SCH (08:36)
[2023-07-09] MEDS: COLACE CAP 100 MG PO SCH (08:36)
[2023-07-09] MEDS: MOTRIN TAB 800 MG PO PRN (11:17)
[2023-07-09] MEDS: PERCOCET TAB 5/325 MG PO PRN (14:15)
[2023-07-09] MEDS: BACTROBAN TOPICAL OINT TOP SCH (14:16)
[2023-07-10] MEDS: ADACEL or BOOSTRIX TDaP VACCINE IM ONE (06:02)
[2023-07-10 06:18] VITALS: RESP 18
[2023-07-10 10:06] VITALS: BP 150/72; PULSE 84; TEMP 97.8
== END 2023-07-10 11:30 | disposition home or self-care (01) | DRG 787 ==
LOC: LD 06:24
PROVIDERS: ADMIT Specialist; ATTEND Specialist
DX: O24.113 Pre-existing type 2 diabetes mellitus, in pregnancy, third trimester; O99.343 Other mental disorders complicating pregnancy, third trimester; O61.8 Other failed induction of labor; Z01.812 Encounter for preprocedural laboratory examination; Z37.0 Single live birth; B95.1 Streptococcus, group B, as the cause of diseases classified elsewhere; O98.82 Other maternal infectious and parasitic diseases complicating childbirth; Z3A.38 38 weeks gestation of pregnancy